=== PATIENT | female | born 1965 | race Caucasian/White ===

== ENCOUNTER 2019-11-23 19:17 | Inpatient (IN) | payer OTHER ==
[~2019-11-23] VITALS: Ht 167.6 cm; Wt 101.6 kg
[~2019-11-23 19:17] MED LIST: AUGMENTIN 875875 MG PO; HYDROCODONE-AP1 EAC6 PO; PREDNISONE 20 M20 M1 PO; SYNTHROID125 MC1 PO; VENTOLIN HFA INH8 GM IH
[2019-11-23 19:25] VITALS: BP 149/86
[2019-11-23 20:04] LABS: URINE BILIRUBIN NEGATIVE (Negative); URINE BLOOD 3+ (Negative); URINE CLARITY CLEAR; URINE COLOR YELLOW; URINE GLUCOSE-RANDOM NEGATIVE (Negative); URINE KETONES NEGATIVE (Negative); URINE LEUKOCYTES-REFLEX TRACE (Negative); URINE NITRITE-REFLEX NEGATIVE (Negative); URINE PROTEIN 1+ (Negative); URINE SPECIFIC GRAVITY 1.025 (1.005-1.030); URINE UROBILINOGEN 0.2 E.U./dl (0.2-1.0)
[2019-11-23 20:28] LABS: ABSOLUTE EOSINOPHILS 0.5 thou/uL (0.0-0.7); ABSOLUTE LYMPHOCYTES 0.8 thou/uL (0.8-5.3); ABSOLUTE MONOCYTES 1.4 thou/uL (0.0-1.2); ABSOLUTE NEUTROPHILS 12.4 thou/uL (1.6-8.1); BASOPHILS 0.3 %; EOSINOPHILS 3.5 %; HEMOGLOBIN 11.8 gm/dL (12.0-15.0); LYMPHOCYTES 5.6 %; MCH 30.4 pg (26.0-34.0); MCHC 33.8 g/dL (28.0-37.0); MCV 89.9 fL (80.0-100.0); MONOCYTES 9.3 %; MPV 7.5 fl. (7.2-11.1); NUCLEATED RBCS 0 /100WBC; PLATELET COUNT* 388 thou/uL (150-400); POLYS 81.3 %; RBC 3.89 mil/uL (4.20-5.00); RDW-CV 14.5 % (10.5-14.5); WBC 15.2 thou/uL (4.0-11.0)
[2019-11-23 20:40] LABS: CALCIUM 8.4 mg/dL (8.5-10.1); CREATININE 1.2 mg/dL (0.6-1.3); POTASSIUM 3.1 mmol/L (3.5-5.1)
[2019-11-23 20:48] LABS: BACTERIA-REFLEX >30 Many /HPF (None Seen); CASTS None Seen /LPF (None Seen); CRYSTALS None Seen /LPF (None Seen); SQUAMOUS >10 Many /LPF (0-3); WBC CLUMPS Few (None Seen)
[2019-11-23 20:52] LABS: ALBUMIN 2.7 g/dL (3.4-5.0); TOTAL BILIRUBIN 0.2 mg/dL (<0.1-1.0); TOTAL PROTEIN 6.5 g/dL (6.4-8.2)
[2019-11-24 03:20] VITALS: BP 129/69
[2019-11-24 08:08] VITALS: BP 100/56
[2019-11-24 08:27] VITALS: BP 100/56
[2019-11-24 16:00] VITALS: BP 99/56
[2019-11-24 17:26] VITALS: BP 98/52
[2019-11-24 20:00] VITALS: BP 116/64
[2019-11-25] VITALS: BP 99/58
[2019-11-25 04:00] VITALS: BP 111/57
[2019-11-25 05:18] LABS: HEMATOCRIT 32.7 % (37.0-47.0); HEMOGLOBIN 11.1 gm/dL (12.0-15.0); MCH 30.1 pg (26.0-34.0); MCV 88.5 fL (80.0-100.0); MPV 7.5 fl. (7.2-11.1); RBC 3.7 mil/uL (4.20-5.00); RDW-CV 14.9 % (10.5-14.5); WBC 19.9 thou/uL (4.0-11.0)
[2019-11-25 05:48] LABS: ALBUMIN 2.3 g/dL (3.4-5.0); CALCIUM 7.9 mg/dL (8.5-10.1); CREATININE 1.5 mg/dL (0.6-1.3); MAGNESIUM 1.4 mg/dL (1.8-2.4); POTASSIUM 3.6 mmol/L (3.5-5.1); TOTAL BILIRUBIN 0.4 mg/dL (<0.1-1.0); TOTAL PROTEIN 6.2 g/dL (6.4-8.2)
[2019-11-25 15:59] VITALS: BP 116/80
[2019-11-25 20:00] VITALS: BP 136/78
[2019-11-26] VITALS: BP 108/62
[2019-11-26 05:26] LABS: HEMOGLOBIN 11.1 gm/dL (12.0-15.0); MCH 30.4 pg (26.0-34.0); MCHC 34.7 g/dL (28.0-37.0); MCV 87.5 fL (80.0-100.0); MPV 7.4 fl. (7.2-11.1); RBC 3.65 mil/uL (4.20-5.00); RDW-CV 14.4 % (10.5-14.5); WBC 21.7 thou/uL (4.0-11.0)
[2019-11-26 08:00] VITALS: BP 105/75; BP 108/62
[2019-11-26 11:27] LABS: CREATININE 1.3 mg/dL (0.6-1.3); POTASSIUM 3.4 mmol/L (3.5-5.1)
[2019-11-26 13:03] VITALS: BP 130/73
--- NOTE | 2019-11-26 15:08 | PATH ---
[address] [address] PATHOLOGY RPT PROCEDURE Name: MARISOL MILLER CARLTON Room: [address] IN ..#: [id number] Admission: 11/24/19 Date of : 69 Discharge: Report #: [id number] Path Case #: [id number] [facility] Accession Number: [id number] . 01 Material submitted: . appendix - APPENDIX . 01 Clinical history: . ACUTE APPENDICITIS/RUPTURED . 02 Diagnosis: Appendix: - Chronic and acute appendicitis, periappendicits and serositis with evidence of rupture, and with grossly identified fecalith. (TUNDE:santo; 11/26/2019) S 11/26/2019 1107 Local . 02 Electronically signed: . Shahram Nevarez MD, Pathologist NPI- [id number] . 01 Gross description: . The specimen is received in formalin, labeled "Almaz, Marisol, appendix" and consists of a ragged and markedly disrupted appendix measuring 5.8 cm in length and up to 1.5 cm in diameter with mesoappendix measuring 1.8 cm thick. The serosa is watts and ragged. The margin is inked black. Sectioning reveals a dilated lumen where intact/not disrupted with possible abscess/necrosis. Present at the bottom the container is a 2.5 cm fecalith. Bodily Injury Adjuster sections are submitted in A1-A3. (SDY; 11/25/2019) SYU/SYU 11/26/2019 1106 Local . 02 Pathologist provided ICD-10: K35.80, K65.8 . 02 CPT . 367665 Specimen Comment: A courtesy copy of this report has been sent to [phone], [phone] Specimen Comment: [phone] Specimen Comment: Report sent to / DR GARCIA Performed at: [address], [place] [id number] MD Daniel Wyatt MD Phone: [phone] Performed at: 02 [facility] [address] [place], [place] [id number] [address] [address] PATHOLOGY RPT PROCEDURE Name: MARISOL MILLER Room: [address] IN .R.#: [id number] Admission: 11/24/19 Date of : 69 Discharge: Report #: [id number] Path Case #: [id number] MD Shahram Nevarez [place] Phone: [phone]
[2019-11-26 16:01] VITALS: BP 104/40
[2019-11-26 19:50] VITALS: BP 140/86
[2019-11-27 08:30] VITALS: BP 110/62
--- NOTE | 2019-11-27 09:56 | OP ---
[facility] [address] [place] [address] OPERATIVE REPORT Name: FARIDEH MILLER Room: [address] IN M.R.#: [id number] Admission: 11/24/19 Attend Phys: Edson Montero Discharge: Date of : 69 Report #: [id number] THIS REPORT FOR: //name// cc: Lilia Honeycutt Linda J. DO ~ CC: Edson Honeycutt DATE OF SERVICE: 11/24/2019 PREOPERATIVE DIAGNOSIS: Acute perforated appendicitis. POSTOPERATIVE DIAGNOSIS: Acute perforated appendicitis. OPERATION: Laparoscopic appendectomy. SURGEON: Edson Montero MD ANESTHESIA: General. ESTIMATED BLOOD LOSS: Minimal. SPECIMEN: Appendix. DESCRIPTION OF PROCEDURE: After informed consent was obtained, the patient was brought to the operating room and placed supine. SCDs were placed and working, preoperative antibiotics were administered, general anesthesia was induced. The abdomen was prepped and draped in the usual sterile fashion. A 10 mm incision was made above the umbilicus. Fascia was incised and a trocar was placed. Pneumoperitoneum was established. Left lower quadrant and right upper quadrant 5 mm trocars were placed. The laparoscope was inserted. I then examined the right lower quadrant. I examined the cecum. There were appendicolith which were visible. There was an appendix that had perforated. I suctioned out the pus. The base of the appendix was identified. I was able to ligate it with a PDS Endoloop. It was too short and friable to ligate with lisa. The fragments of the appendix were then placed into an Endopouch. The appendicoliths were removed as well through the Endopouch. The area was then suctioned out. I did not irrigate very much at all. The pus was all removed. The ports were then removed under direct vision. The fascia was then closed with a [id number] 0 Vicryl. Skin was closed with 4-0 Monocryl. Incisions were sealed with Dermabond. COMPLICATIONS: [place] [address] OPERATIVE REPORT Name: FARIDEH MILLER Room: [address] IN [facility]#: [id number] Admission: 11/24/19 Attend Phys: Edson Montero Discharge: Date of : 69 Report #: [id number] DISPOSITION: The patient was taken to recovery in satisfactory condition. <ELECTRONICALLY SIGNED> By: Edson Montero MD 11/27/19 [id number] [id number] Montero MD /nt
[2019-11-27] MEDS ORDERED: DEXAMETHASONE 22 M1 PO (10:19)
[2019-11-27] MEDS ORDERED: PROAIR HFA8.5 GM INH (10:19)
[2019-11-27] MEDS ORDERED: PROTONIX40 M2 PO (10:19)
[2019-11-27 11:32] VITALS: BP 140/86
[2019-11-27] MEDS ORDERED: LORCET 5-325 M1 EACH PO (11:44)
[2019-11-27] MEDS ORDERED: AUGMENTIN 875-1 EACH PO (11:45)
== END 2019-11-27 16:10 | disposition home or self-care (01) | DRG 853 ==
LOC: M.ERS 19:17 → M.TBA-ER 23:18 → M.2W 23:18 → M.TBA-ER 23:18 → M.2W 23:18 → M.TBA-ER 11-24 08:15 → M.2W 11-24 10:00
PROVIDERS: Internal Medicine; Personal Emergency Response Attendant; ADMIT Surgery; ATTEND Surgery
PROC: 0DTJ4ZZ Resection of Appendix, Percutaneous Endoscopic Approach (ICD-10-PCS; principal; 2019-11-24)
DX: A41.9 Sepsis, unspecified organism (principal); N17.0 Acute kidney failure with tubular necrosis; U07.1 COVID-19; K35.20 Acute appendicitis with generalized peritonitis, without abscess; E44.0 Moderate protein-calorie malnutrition; E03.9 Hypothyroidism, unspecified; F17.210 Nicotine dependence, cigarettes, uncomplicated; E66.9 Obesity, unspecified; E87.6 Hypokalemia; Z68.36 Body mass index [BMI] 36.0-36.9, adult; Z79.899 Other long term (current) drug therapy

== ENCOUNTER 2019-12-05 16:51 | Inpatient (IN) | payer OTHER ==
[~2019-12-05] VITALS: Ht 167.6 cm; Wt 92.1 kg
[~2019-12-05 16:51] MED LIST changes: +AUGMENTIN 875-1 EACH PO; +DEXAMETHASONE 22 M1 PO; +LORCET 5-325 M1 EACH PO; +PROAIR HFA8.5 GM INH; +PROTONIX40 M2 PO
[2019-12-05 17:09] VITALS: BP 144/82
[2019-12-05 17:28] LABS: ABSOLUTE BASOPHILS 0.1 thou/uL (0.0-0.2); ABSOLUTE MONOCYTES 0.4 thou/uL (0.0-1.2); ABSOLUTE NEUTROPHILS 12.8 thou/uL (1.6-8.1); BASOPHILS 0.4 %; EOSINOPHILS 0.1 %; HEMATOCRIT 36.2 % (37.0-47.0); HEMOGLOBIN 12.2 gm/dL (12.0-15.0); MCH 29.8 pg (26.0-34.0); MCHC 33.8 g/dL (28.0-37.0); MONOCYTES 2.7 %; MPV 6.4 fl. (7.2-11.1); NUCLEATED RBCS 0 /100WBC; POLYS 83.8 %; RBC 4.11 mil/uL (4.20-5.00); RDW-CV 14.6 % (10.5-14.5); WBC 15.3 thou/uL (4.0-11.0)
[2019-12-05 17:38] LABS: PLATELET COUNT* 926 thou/uL (150-400)
[2019-12-05 17:41] LABS: CALCIUM 8.7 mg/dL (8.5-10.1); CREATININE 1.1 mg/dL (0.6-1.3); POTASSIUM 3.6 mmol/L (3.5-5.1)
[2019-12-05 17:45] LABS: ALBUMIN 3.2 g/dL (3.4-5.0); TOTAL BILIRUBIN 0.2 mg/dL (<0.1-1.0); TOTAL PROTEIN 7.7 g/dL (6.4-8.2)
[2019-12-05 17:59] LABS: URINE BILIRUBIN NEGATIVE (Negative); URINE BLOOD 1+ (Negative); URINE CLARITY CLEAR; URINE COLOR YELLOW; URINE GLUCOSE-RANDOM NEGATIVE (Negative); URINE KETONES NEGATIVE (Negative); URINE LEUKOCYTES-REFLEX NEGATIVE (Negative); URINE NITRITE-REFLEX NEGATIVE (Negative); URINE PROTEIN NEGATIVE (Negative); URINE UROBILINOGEN 0.2 E.U./dl (0.2-1.0)
[2019-12-05 18:06] LABS: BACTERIA-REFLEX 1-9 Few /HPF (None Seen); CASTS None Seen /LPF (None Seen); CRYSTALS None Seen /LPF (None Seen); SQUAMOUS 0-3 Few /LPF (0-3); URINE RBC 3-10 Few /HPF (0-2); URINE WBC-REFLEX 0-5 Rare /HPF (0-5)
[2019-12-05 19:55] VITALS: BP 115/58
[2019-12-05 20:15] VITALS: BP 137/74
[2019-12-06] VITALS: BP 117/55
[2019-12-06 05:11] LABS: HEMATOCRIT 32.7 % (37.0-47.0); HEMOGLOBIN 11.3 gm/dL (12.0-15.0); MCH 30.1 pg (26.0-34.0); MCHC 34.4 g/dL (28.0-37.0); MCV 87.5 fL (80.0-100.0); MPV 6.9 fl. (7.2-11.1); RBC 3.74 mil/uL (4.20-5.00); RDW-CV 14.6 % (10.5-14.5); WBC 13.7 thou/uL (4.0-11.0)
[2019-12-06 05:45] LABS: ALBUMIN 2.7 g/dL (3.4-5.0); CREATININE 1.1 mg/dL (0.6-1.3); POTASSIUM 3.2 mmol/L (3.5-5.1); TOTAL BILIRUBIN 0.2 mg/dL (<0.1-1.0); TOTAL PROTEIN 6.6 g/dL (6.4-8.2)
[2019-12-06 08:30] VITALS: BP 115/61
[2019-12-06 16:00] VITALS: BP 115/59
[2019-12-06 23:58] VITALS: BP 112/68
[2019-12-07 04:59] VITALS: BP 117/66
[2019-12-07 08:00] VITALS: BP 105/65
[2019-12-07 15:15] LABS: PROTIME 10.3 Seconds (9.20-11.50)
[2019-12-07 16:04] VITALS: BP 113/67
[2019-12-07 20:10] VITALS: BP 108/60
[2019-12-08] VITALS: BP 109/69; BP 120/68
[2019-12-08 06:54] LABS: HEMATOCRIT 34.5 % (37.0-47.0); HEMOGLOBIN 11.7 gm/dL (12.0-15.0); MCH 29.7 pg (26.0-34.0); MCV 87.2 fL (80.0-100.0); MPV 6.4 fl. (7.2-11.1); RBC 3.95 mil/uL (4.20-5.00); RDW-CV 14.7 % (10.5-14.5); WBC 11.8 thou/uL (4.0-11.0)
[2019-12-08 07:03] LABS: CALCIUM 8.7 mg/dL (8.5-10.1); CREATININE 1.1 mg/dL (0.6-1.3); MAGNESIUM 1.9 mg/dL (1.8-2.4); POTASSIUM 3.5 mmol/L (3.5-5.1)
[2019-12-08 08:00] VITALS: BP 110/70
[2019-12-08] MEDS ORDERED: FLAGYL500 M1 PO (11:50)
[2019-12-08] MEDS ORDERED: NORCO 10-325 T1 EAC1 PO (11:50)
[2019-12-08] MEDS ORDERED: LEVOFLOXACIN750 MG PO (11:51)
[2019-12-08 11:53] VITALS: BP 109/69
== END 2019-12-08 12:15 | disposition home or self-care (01) | DRG 178 ==
LOC: M.2W 18:18 → M.TBA-ER 18:18 → M.2W 20:25
PROVIDERS: Emergency Medicine Emergency Medical Services; Internal Medicine; ADMIT Surgery; ATTEND Surgery
DX: U07.1 COVID-19 (principal); L02.211 Cutaneous abscess of abdominal wall; T81.43XA Infection following a procedure, organ and space surgical site, initial encounter; E03.9 Hypothyroidism, unspecified; E87.6 Hypokalemia; D72.829 Elevated white blood cell count, unspecified; Y83.8 Other surgical procedures as the cause of abnormal reaction of the patient, or of later complication, without mention of misadventure at the time of the procedure; Y92.89 Other specified places as the place of occurrence of the external cause; Z90.49 Acquired absence of other specified parts of digestive tract